=== PATIENT | male | born 1980 | race Caucasian/White ===

== ENCOUNTER 2017-04-27 13:16 | Emergency (ER) | payer BC ==
[2017-04-27 13:31] VITALS: BP 164/87
--- NOTE | 2017-04-27 13:58 | ERNOTE ---
Medical Problem HPI - Narrative Date of Service: 04/27/17 - General Chief Complaint: Laceration Time Seen by Provider: 04/27/17 13:39 Source: patient Exam Limitations: no limitations - Immun/Allergies/Home Medications Immunizations: IMMUNIZATION HX Immunizations Up to Date Yes History of Influenza Vaccine No Hx Pneumococcal Vaccination No Allergies/Adverse Reactions: Allergies nafcillin Allergy (Verified 04/27/17 13:31) Hives Home Medications: HOME MEDICATIONS NK [No Home Medication] 04/27/17 [Last Taken Unknown] - History of Present History Narrative: Pt. comes in with c/o L pinky finger smashed by a authors motivational when he was loading it onto a trailer. Pt. denies any SOB, CP, NVD, fever, recent illness, numbness or tingling. Review of Systems - Review of Systems Constitutional: Present: no symptoms reported. Absent: recent illness, fever, chills, weakness, fatigue, malaise EYE: Present: no symptoms reported ENT: Present: no symptoms reported Respiratory: Present: no symptoms reported. Absent: shortness of breath, cough , wheezing Cardiology: Present: no symptoms reported. Absent: chest pain, palpitations, edema Musculoskeletal: Present: joint pain - R fifth finger Skin: Present: other - laceration L fifth finger Neurological: Present: no symptoms reported. Absent: headache, dizziness/light- headedness, numbness, tingling All Other Systems: All systems neg except as marked - Patient's Past Medical History Patient History - Medical: No pertinent hx Patient History - Cardiac/Respiratory: No pertinent hx Patient History - Cancer: No Hx of Cancer Patient History - Surgical Procedures: Other Patient History - Other: None - Social History Living Situations: home Abuse History: No History of abuse Psych History: No pertinent hx Smoking Status: Never smoker Alcohol Use: occasionally Drug Use: none - Immunizations Immunizations Up to Date: Yes Hx Pneumococcal Vaccination: No History of Influenza Vaccine: No Physical Exam - Physical Exam General Appearance: Present: wd/wn, alert, no apparent distress Head Exam: Present: normal inspection, no evidence of injury, no tenderness w palpation Eye Exam: Normal inspection: bilateral, PERRL: bilateral, EOMI: bilateral Respiratory: Present: no respiratory distress, normal breath sounds, no accessory muscle use, chest nontender, lungs clear Cardiovascular/Chest: Present: regular rate, rhythm, no murmur, normal peripheral pulses Back Exam: Present: normal inspection Extremity Exam: Present: normal range of motion, no edema, bony tenderness, other - skin avulsion partial thickness open mild bleeding no closure needed L fifth finger ED Progress - Date and Time Seen: Date and Time: 04/27/17 13:50 As wound is like skin tear and not laceration there is no closure necessary and needs to heal by secondary intention. 04/27/17 14:17 Will splint finger due to possible fracture an will have follow up with [facility]. - Vital Signs Patient's Vital Signs:: I have reviewed the patient's vital signs. Vital Signs: Vital Signs 04/27/17 13:26 Temperature 36.0 C L Pulse Rate 74 Respiratory 16 Rate Blood Pressure 164/87 O2 Sat by Pulse 97 Oximetry - X-Ray X-Ray #1 X-Ray: finger Interpretation: Reviewed by me X-ray Comments: possible cortical chip fx - Progress/Reassessment Chief Complaint: Laceration Departure - Departure Clinical Impression: Skin tear Avulsion fracture of distal phalanx of finger Qualifiers: Encounter type: initial encounter Fracture type: closed Qualified Code(s): S62.639A - Displaced fracture of distal phalanx of unspecified finger, initial encounter for closed fracture Disposition: Home self-care Condition: Good Instructions: Hand Contusion, [id number] Additional Instructions: Please apply fresh dressing daily and follow up with occupational health in 2-3 days. May take Ibuprofen or Tylenol for pain. Wear splint at all times.
== END 2017-04-27 14:30 | disposition home or self-care (01) ==
LOC: ER 13:16
PROC: 2W3KX1Z Immobilization of Left Finger using Splint (ICD-10-PCS; principal; 2017-04-27)
DX: S62.637A Displaced fracture of distal phalanx of left little finger, initial encounter for closed fracture (principal); S60.947A Unspecified superficial injury of left little finger, initial encounter; W23.0XXA Caught, crushed, jammed, or pinched between moving objects, initial encounter; Y93.89 Activity, other specified; Y92.89 Other specified places as the place of occurrence of the external cause; Y99.0 Civilian activity done for income or pay